=== PATIENT | male | born 1980 | race Caucasian/White ===

== ENCOUNTER → 2018-11-22 | Outpatient (CLI) | payer BC, SELFPAY ==
--- NOTE | 2018-11-22 06:48 | MRI_ITS ---
STUDY: MRI BRAIN WITH AND WITHOUT CONTRAST REASON FOR EXAM: Male, 38 years old. Memory loss TECHNIQUE: Standardized multiplanar fat and water weighted pulse sequences were obtained. 15 IV Dotarem was administered for the contrast portion of the examination. COMPARISON: None. FINDINGS: Normal size of the ventricles and extra-axial spaces for the patient's age. Normal white matter tracts of the supratentorial brain. There is no evidence for recent intracranial ischemia or other cause of cytotoxic edema on diffusion weighted imaging (DWI). Normal T2* images of the brain without demonstrated susceptibility artifact. There is no demonstrated hemosiderin stain. Normal bilateral basal ganglia. Normal thalami. There is no extra-axial fluid accumulation. Normal flow voids within the major intracranial circulation suggesting patency by spin echo criteria. Normal venous enhancement. There is no enhancing intra-axial or extra-axial abnormality. Normal sella turcica, pituitary gland, infundibular stalk, optic chiasm and hypothalamus. Normal tectal plate and pineal gland. Normal midbrain, marisa and medulla. Normal cerebellum. Normal basal cisterns. Normal bilateral temporal bones. Normal bilateral internal auditory canals. No demonstrated orbital abnormality, within the constraints of a routine brain study. Normal visualized paranasal sinuses. Normal calvarium and skull base. Normal visualized soft tissue structures. Normal visualized upper cervical spine. MRI/Brain W/WO Contrast IMPRESSION: Normal unenhanced and enhanced MRI of the brain. Electronically Signed: Makennabalwinder Nino, at 9:50 EDT Tel , Service support ,
== END | disposition home or self-care (01) ==
LOC: MRI 06:38
PROVIDERS: Family Provider Family Medicine; PCP Family Medicine; Referring Provider Family Medicine; Visit Provider Family Medicine
DX: F69 Unspecified disorder of adult personality and behavior (principal); F48.9 Nonpsychotic mental disorder, unspecified; R41.82 Altered mental status, unspecified
CPT/HCPCS: 70553; A9575

== ENCOUNTER 2019-04-24 07:00 | Outpatient (RCR) | payer BC, SELFPAY ==
--- NOTE | 2019-02-12 10:08 | HP.PTEVAL_ITS ---
Patient's Visit Information MOIRA SPENCER is a 38 year old M referred to Physical Therapy by KORY CONTE with a diagnosis of L knee femoral condyle Osteochondral Allograft. Date of Evaluation: 02/10/19 Physical Therapist: Nain Harper DPT - Visit Plan Frequency: 2-3x /Week Duration: 4-6 Weeks Plan: Start with ROM of LLE increasing to full. Progress with protocol. May use ice and vaso for edema control. - Subjective Findings: Pt. is here today for his initial evaluation with diagnosis of L knee femoral condyle Osteochondral Allograft. DOS: 02/04/19. Pt. reports having minimal pain today, but he thinks that his nerve block has not fully worn off. Pt. reports doing some initial ROm exercises at home. He is icing frequently. Pt. arives using crutches, maintaining NWBing on LLE as prescribed. Pt. has been using an KI bandage for edema control as well. He reports no calf pain, slight some dulled sensation reported due to nerve block. Pt. is to be NWBing for another week progressing per protocol. Pt. is hopeful to increase his ROM and strength in order to get back to all recreational activites without limitations. - Pain L knee Pain Intensity (Out of 10): 2 Pain Intensity Range: 2, 6 - Objective POSTURE: Pt. is able to stand wtih proper WBing with normal knee positioning. Use of crutches for stability. PALPATION: Pt. has slight edema throughout knee, slight. Pt. has no pitting edema. No signs of infection. Incision is still bandaged until Wed. No calf pain, negative homans sign. NEURO: normal, slight dulled sensation throughout LLE. Normal achilles DTR. ROM: R knee 0-0-140deg. L knee 0-0-76deg Pt. has increased tenderness with end ranges of motion each direction. Pt. has normal HS length and normal hip ROM. MMT: RLE- 5/5 throughout. LLE- ankle 5/5 througout; knee- good quad set, SLR with minimal lag, but difficulty, flexion 4-/5; hip- flexion 4/5, abd 4/5, ext 4/5. Core str ength- fair. GAIT: Pt. is properly ambulating with NWBing on LLE. Pt. is able to stand and stabilize with his LLE, with crutches. - Goals Goal 1:: Pt. to be I with HEP. Goal Time Frame: 4-6 Weeks Goal 2:: Pt. to have increased ROM of L knee to full without increase in symptoms. Goal Time Frame: 4-6 Weeks Goal 3:: Pt. have SLR with out quad lag x20 without issues. Goal Time Frame: 4-6 Weeks Goal 4:: Pt. to sleep throughout the night without increase in symptoms. Goal Time Frame: 4-6 Weeks Goal 5:: Pt. to ambulate with normal pattern without increase in symptoms without AD. Goal Time Frame: 6-8 Weeks Goal 6:: Pt. to have increased strength throughout LLE by 1/2 grade. Goal Time Frame: 4-6 Weeks - Rehabilitation Potential Physical Therapy Diagnosis: Pt. has signs and symptoms consistent L knee femoral condyle Osteochondral Allograft. Pt. has subsequent hypomobility, pain, difficulty with walking, and weakness. Pt. would benefit from PT to increase his ROM, strength and progresshis functional mobility. Rehabilitation Potential: Excellent - Anticipated Interventions Patient/Client Instruction: Educate patient on: Condition, Plan of Care, Risk Factors, Benefits of Fitness Program For the Purpose of:: To improve health and function, To foster healthy habits, To improve decision making, To facilitate caregiver knowledge, To improve self management, To prevent re-injury, To improve ability to perform tasks related to life management, To improve tolerance to ADL's Therapeutic Exercise to Include: Strength training, Power training, Endurance training, Agility training, Postural training, Flexibilty training, Gait and locomotor training, Passive ROM, Active ROM For the Purpose of:: To decrease pain, To decrease swelling/inflammation, To increase ROM, To improve nutrient delivery to tissue, To increase oxygenation perfusion, To improve muscle performance and motor function, To improve ability to perform ADL's, To improve gait and locomotor functions, To improve health of tissue, To decrease soft tissue restriction, To increase flexibility/ROM, To improve endurance, To improve balance IF ES: Yes Cryotherapy (ice pack, ice massage): Yes Vasopneumatic device: Yes For the Purpose of:: To decrease pain, To decrease swelling/inflammation, To increase ROM Thank you for the opportunity to evaluate your patient. For Medicare and Medicare HMO plans, please review the plan of care and approve it. It will need to be FAXED BACK to us at [phone] for Medicare purposes. For Medicare only, by signing this I certify the plan of care. Please let me know if there are questions or concerns regarding this plan of care. Physician Signature: Date:
--- NOTE | 2019-03-14 10:55 | HP.PTREVAL ---
KORY CONTE, It has been my pleasure to treat MOIRA SPENCER over the last 9 visits for L knee femoral condyle Osteochondral Allograft. Please see the progress note below for an update on the physical therapy plan of care! Subjective: Pt. reports doing well no new issues. pt. is still having some popping, mostly with straightnening and bending his knee. Pt. reports no issues otherwis. Pt. to follow up with physician tomorrow. Objective/Function: ROM: knee 0-0-131deg. MMT: good SLR no lag with 10#, HS 4/5, hip: abd 4/5, ext 4/5. COre strength- fair. GAIT: Pt. is progressing with gait and WBing as expected. Pt. reports no pain at rest, mild soreness with popping. It seems to be more PF in nature. Pt. is doing well overall. Progressing as expected. Plan Plan: Start with ROM of LLE increasing to full. Progress with protocol. May use ice and vaso for edema control. Goals Goal 1:: Pt. to be I with HEP. Goal Time Frame: 4-6 Weeks Goal Progress: Progressing Goal 2:: Pt. to have increased ROM of L knee to full without increase in symptoms. Goal Time Frame: 4-6 Weeks Goal Progress: Progressing Goal 3:: Pt. have SLR with out quad lag x20 without issues. Goal Time Frame: 4-6 Weeks Goal Progress: Goal Met Goal 4:: Pt. to sleep throughout the night without increase in symptoms. Goal Time Frame: 4-6 Weeks Goal Progress: Goal Met Goal 5:: Pt. to ambulate with normal pattern without increase in symptoms without AD. Goal Time Frame: 6-8 Weeks Goal Progress: Progressing Goal 6:: Pt. to have increased strength throughout LLE by 1/2 grade. Goal Time Frame: 4-6 Weeks Goal Progress: Progressing Anticipated Interventions Patient/Client Instruction: Educate patient on: Condition, Plan of Care, Risk Factors, Benefits of Fitness Program For the Purpose of:: To improve health and function, To foster healthy habits, To improve decision making, To facilitate caregiver knowledge, To improve self management, To prevent re-injury, To improve ability to perform tasks related to life management, To improve tolerance to ADL's Therapeutic Exercise to Include: Strength training, Power training, Endurance training, Agility training, Postural training, Flexibilty training, Gait and locomotor training, Passive ROM, Active ROM For the Purpose of:: To decrease pain, To decrease swelling/inflammation, To increase ROM, To improve nutrient delivery to tissue, To increase oxygenation perfusion, To improve muscle performance and motor function, To improve ability to perform ADL's, To improve gait and locomotor functions, To improve health of tissue, To decrease soft tissue restriction, To increase flexibility/ROM, To improve endurance, To improve balance IF ES: Yes Cryotherapy (ice pack, ice massage): Yes Vasopneumatic device: Yes For the Purpose of:: To decrease pain, To decrease swelling/inflammation, To increase ROM Please do not hesitate to contact me at [phone] by phone or if you have questions or concerns regarding this new plan of care! Sincerely, KELLI GuallpaT
--- NOTE | 2019-08-18 07:57 | HP.PT.NRP ---
MOIRA SPENCER was seen in my office for initial evaluation on 02/10/19. The following Plan of Care was established for this patient: Initial Frequency: 2-3x /Week Initial Duration: 4-6 Weeks Patient/Client Instruction: Educate patient on: Condition, Plan of Care, Risk Factors, Benefits of Fitness Program For the Purpose of:: To improve health and function, To foster healthy habits, To improve decision making, To facilitate caregiver knowledge, To improve self management, To prevent re-injury, To improve ability to perform tasks related to life management, To improve tolerance to ADL's Therapeutic Exercise to Include: Strength training, Power training, Endurance training, Agility training, Postural training, Flexibilty training, Gait and locomotor training, Passive ROM, Active ROM For the Purpose of:: To decrease pain, To decrease swelling/inflammation, To increase ROM, To improve nutrient delivery to tissue, To increase oxygenation perfusion, To improve muscle performance and motor function, To improve ability to perform ADL's, To improve gait and locomotor functions, To improve health of tissue, To decrease soft tissue restriction, To increase flexibility/ROM, To improve endurance, To improve balance IF ES: Yes Cryotherapy (ice pack, ice massage): Yes Vasopneumatic device: Yes For the Purpose of:: To decrease pain, To decrease swelling/inflammation, To increase ROM This patient was last seen in our office 04/24/19. Pertinent comments regarding their Physical therapy will appear below: Pt. was being seen for his L knee post femoral allograft. Pt. was doing very well. pt. was having no pain and back to full adn good strength. Pt. has not been seen in several months and will be DC from PT at this point in time. At this point I will be discontinuing this patient from physical therapy. I would be happy to see this patient again in the future if found appropriate by the physician. Thank you! KELLI GuallpaT
== END 2019-04-24 19:00 | disposition home or self-care (01) ==
LOC: PT 07:00
PROVIDERS: Family Provider Family Medicine; PCP Family Medicine
DX: M95.8 Other specified acquired deformities of musculoskeletal system (principal)
CPT/HCPCS: 97110; 97161

== ENCOUNTER → 2019-12-08 08:58 | Outpatient (CLI) | payer BC, SELFPAY ==
[2019-12-08 13:05] LABS: Vitamin D,25 Hydroxy 39.9 ng/mL
[2019-12-08 13:08] LABS: Absolute Lymphocyte Count 1.31 X10^3/uL (0.83-4.51); Basophil# 0.01 X10^3/uL; Basophil% 0.3 % (0-1); Eosinophil# 0.09 X10^3/uL; Eosinophils% 2.4 % (0-5); Hematocrit 42.8 % (40-54); Hemoglobin 14.5 g/dL (13.0-16.5); Lymphocyte # 1.31 X10^3/ul (4.0); Lymphocyte % 34.7 % (19-41); Mean Corp Hgb Conc 33.9 g/dL (32-36); Mean Corpuscular Hgb 29.2 pg (27.0-32.0); Mean Corpuscular Volume 86.1 fL (80-94); Mean Platelet Vol. 10.4 fl (6.2-12.0); Monocyte# 0.34 X10^3/uL; NRBC Flagged by Analyzer 0 % (0-5); Neutrophil # 2.02 X10^3/uL (2.7-7.7); Neutrophil % 53.3 % (47-70); Platelet Count 189 K/mm3 (150-450); RBC Distribution Width CV 12.6 % (11.6-14.6); RBC Distribution Width SD 39.1 fl (35.1-43.9); Red Blood Count 4.97 M/mm3 (4.6-6.2); White Blood Count 3.8 K/mm3 (4.4-11.0)
[2019-12-08 14:12] LABS: ALB/GLOB Ratio 1.4 RATIO (0.9-2.4); AST(SGOT) 20 U/L (15-37); Alanine Aminotransfer ALT/SGPT 28 U/L (16-61); Alkaline Phosphatase 74 U/L (45-117); Anion Gap 7 (5-15); BUN 21 mg/dL (7-18); BUN/Creat Ratio 21.1 RATIO (10-20); Calcium,Total 8.9 mg/dL (8.5-10.1); Chloride 110 mmol/L (98-107); Cholesterol 150 mg/dL (200); Creatinine, Serum 0.99 mg/dL (0.70-1.30); EST Glomerular Filtration Rate 88 mL/min (>60); Est Glom Filt Rate - Afr Amer 106 mL/min (>60); Globulin 2.9 g/dL (2.2-4.2); Glucose 90 mg/dL (74-106); High Density Lipoprotein 65 mg/dL; Protein, Total 6.9 g/dL (6.4-8.2); Sodium Level 144 mmol/L (136-145); Triglycerides 53 mg/dL; Very Low Density Lipoprotein 11 mg/dL (5-40)
== END ==
PROVIDERS: PCP Family Medicine; Visit Provider Family Medicine
DX: Z00.00 Encounter for general adult medical examination without abnormal findings (principal); E55.9 Vitamin D deficiency, unspecified
CPT/HCPCS: 36415; 80053; 80061; 82306; 85025

== ENCOUNTER 2021-01-27 06:54 | Outpatient (RCR) | payer BC, SELFPAY ==
--- NOTE | 2021-01-27 08:46 | HP.PTEVAL_ITS ---
Patient's Visit Information MOIRA SPENCER is a 40 year old M referred to Physical Therapy by KORY CONTE with a diagnosis of Osteochondral defect of condyle of femur. Date of Evaluation: 01/27/21 Physical Therapist: Nain Harper DPT - Visit Plan Frequency: 1x/Week Duration: 6 Weeks Plan: Begin strengthening quad, hamstring and hip musculature. Continue to improve L knee ROM. - Subjective Pt presents to PT with 2 days post surgical arthroscopic meniscal clean out (DOS: 12/25/20). 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 Pt reports surgeon stated things went well. No pain is reported currently, and patient reports no use of pain medication. Pt goals for therapy are to return to jogging, and if possible running a 5k. 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 He reports job is a mixture of sitting and standing, but mostly sitting. He is very active and would like to get back to some form of biking and running. He denies N/T. NO calf pain. No fever or blurred vison. Pt - Pain Left Knee Pain Intensity (Out of 10): 0 - Objective ROM : L Knee AROM 4-0-131. Strength: quad stability assessed via SLR w/ no extensor lag x20 without issues. Observation: incision covered with steri- strips, no signs of infection , slight atrophy of L quadricep muscle. GIRTH: Left knee: 6 cm below 31.5cm,at joint:33cm, 6cm above 37cm, Right knee: 6cm below 31.4cm, at joint: 32.5cm, 6cm below 36cm. Reflexes: Patellar and Achilles normal. gait: normal gait pattern, slightly cautious, but no gross abnormalities. - Balance/Special Test Scores Lower Extremity Functional Score: 38 - Goals Goal 1:: Pt will be independent with HEP Goal Time Frame: 2-4 Weeks Goal 2:: LTG: Pt will achieve 5/5 strength for all LLE musculature. Goal Time Frame: 4-6 Weeks Goal 3:: LTG: Pt will return to jogging 1 mile with no pain. Goal Time Frame: 4-6 Weeks Goal 4:: STG: Pt will achieve 140 degrees of L knee flexion. Goal Time Frame: 2-4 Weeks - Rehabilitation Potential Physical Therapy Diagnosis: L LE weakness, decreased ROM, increased edema Rehabilitation Potential: Good - Anticipated Interventions Patient/Client Instruction: Educate patient on: Condition, Plan of Care, Risk Factors, Benefits of Fitness Program For the Purpose of:: To decrease swelling/inflammation, To increase ROM, To improve nutrient delivery to tissue, To improve ability of physical actions for home/community/work/leisure, To improve health of tissue, To increase flexibility/ROM Therapeutic Exercise to Include: Strength training, Endurance training, Agility training, Flexibilty training, Passive ROM, Active ROM For the Purpose of:: To decrease pain, To decrease swelling/inflammation, To increase ROM, To improve nutrient delivery to tissue, To improve muscle performance and motor function, To improve ability of physical actions for home/community/work/leisure, To increase flexibility/ROM, To improve endurance Manual Therapy Techniques to Include: Scar massage, Passive ROM For the Purpose of:: To decrease swelling/inflammation, To increase ROM, To increase flexibility/ROM Cryotherapy (ice pack, ice massage): Yes Vasopneumatic device: Yes For the Purpose of:: To decrease pain, To decrease swelling/inflammation Thank you for the opportunity to evaluate your patient. For Medicare and Medicare HMO plans, please review the plan of care and approve it. It will need to be FAXED BACK to us at [phone] for Medicare purposes. For Medicare only, by signing this I certify the plan of care. Please let me know if there are questions or concerns regarding this plan of care. Physician Signature: Date:
== END 2021-01-27 19:00 | disposition home or self-care (01) ==
LOC: PT 06:54
PROVIDERS: PCP Family Medicine
DX: M95.8 Other specified acquired deformities of musculoskeletal system (principal)
CPT/HCPCS: 97110; 97161

== ENCOUNTER → 2023-03-08 | Outpatient (CLI) | payer BC, SELFPAY ==
[2023-03-08 16:05] LABS: Cholesterol 169 mg/dL (200); High Density Lipoprotein 87 mg/dL; Triglycerides 48 mg/dL; Very Low Density Lipoprotein 10 mg/dL (5-40)
== END | disposition home or self-care (01) ==
LOC: BFHLAB 13:04
PROVIDERS: PCP Family Medicine; Visit Provider Family Medicine
DX: Z00.00 Encounter for general adult medical examination without abnormal findings (principal)
CPT/HCPCS: 36415; 80061

== ENCOUNTER → 2024-03-05 | Outpatient (CLI) | payer BC, SELFPAY ==
[2024-03-05 15:42] LABS: Absolute Lymphocyte Count 1.37 X10^3/uL (0.83-4.51); Absolute Neutrophil Count 1.7 X10^3/uL (2.0-7.7); Basophil# 0.02 X10^3/uL; Basophil% 0.6 % (0-1); Eosinophil# 0.03 X10^3/uL; Eosinophils% 0.9 % (0-5); Hematocrit 42.8 % (40-54); Hemoglobin 14.9 g/dL (13.0-16.5); Lymphocyte # 1.37 X10^3/ul (0.83-4.51); Lymphocyte % 39.4 % (19-41); Mean Corp Hgb Conc 34.8 g/dL (32-36); Mean Corpuscular Hgb 29.4 pg (27.0-32.0); Mean Corpuscular Volume 84.4 fL (80-94); Mean Platelet Vol. 10.4 fl (6.2-12.0); Monocyte# 0.33 X10^3/uL; Monocyte% 9.5 % (0-10); NRBC Flagged by Analyzer 0 % (0-5); Neutrophil # 1.72 X10^3/uL (2.7-7.7); Neutrophil % 49.3 % (47-70); Platelet Count 201 K/mm3 (150-450); RBC Distribution Width CV 12.3 % (11.6-14.6); RBC Distribution Width SD 37.1 fl (35.1-43.9); Red Blood Count 5.07 M/mm3 (4.6-6.2); White Blood Count 3.5 K/mm3 (4.4-11.0)
[2024-03-05 15:59] LABS: ALB/GLOB Ratio 1.3 RATIO (0.9-2.4); AST(SGOT) 15 U/L (15-37); Alanine Aminotransfer ALT/SGPT 29 U/L (16-61); Albumin, Serum 4.1 g/dL (3.2-5.0); Alkaline Phosphatase 81 U/L (45-117); Anion Gap 6 (5-15); BUN 13 mg/dL (7-18); Calcium,Total 9.3 mg/dL (8.5-10.1); Chloride 103 mmol/L (98-107); Cholesterol 163 mg/dL (200); EST Glomerular Filtration Rate 86 mL/min (>60); Est Glom Filt Rate - Afr Amer 104 mL/min (>60); Globulin 3.1 g/dL (2.2-4.2); Glucose 93 mg/dL (74-106); High Density Lipoprotein 81 mg/dL; Potassium 3.7 mmol/L (3.5-5.1); Protein, Total 7.2 g/dL (6.4-8.2); Sodium Level 139 mmol/L (136-145); Triglycerides 69 mg/dL; Very Low Density Lipoprotein 14 mg/dL (5-40)
[2024-03-06 00:49] LABS: Vitamin D,25 Hydroxy 28.7 ng/mL
== END | disposition home or self-care (01) ==
LOC: MTLAB 13:03
PROVIDERS: PCP Family Medicine; Referring Provider Family Medicine; Visit Provider Family Medicine
DX: Z00.00 Encounter for general adult medical examination without abnormal findings (principal)
CPT/HCPCS: 36415; 80053; 80061; 82306; 85025